=== PATIENT | male | born 1950 | race Caucasian/White ===

== ENCOUNTER → 2017-11-11 | Outpatient (CLI) | payer BC ==
--- NOTE | 2017-11-15 08:09 | US ---
EXAM DESCRIPTION: Carotid Duplex CLINICAL HISTORY: 66 years, Male, UNSPECIFIED DISORDER OF CIRCULATORY SYSTEM COMPARISON: [None.] FINDINGS: Indirect estimation of percent stenosis is inferred from velocity parameters and cross referenced to published or self-generated correlations among velocity parameters. Peak systolic velocity right common carotid artery 81 centimeters/second. Peak systolic velocity right internal carotid artery 64 centimeters/second. Right ICA to CCA ratio 0.8. Antegrade flow in the right vertebral artery. Grayscale images show a small amount of plaque in the right carotid bifurcation. Peak systolic velocity left common carotid artery 94 centimeters/second. Peak systolic velocity left internal carotid artery 66 centimeters/second. Left ICA to CCA ratio 0.7. [Antegrade] flow in the left vertebral artery. Grayscale images show a small amount of plaque in the left carotid bifurcation. IMPRESSION: Mild (less than 50%) bilateral carotid artery stenosis. Electronically signed by: Stanford Jane MD 11/15/2017 8:08 AM SENIOR TECHNICAL SPECIALIST
== END ==
LOC: US 09:37
DX: I99.9 Unspecified disorder of circulatory system (principal); I65.23 Occlusion and stenosis of bilateral carotid arteries; E11.65 Type 2 diabetes mellitus with hyperglycemia

== ENCOUNTER → 2019-05-09 | Outpatient (CLI) | payer MEDICARE, OTHER ==
--- NOTE | 2019-05-09 17:22 | RAD ---
EXAM DESCRIPTION: Foot,Right 3 Views CLINICAL HISTORY: 68 years, Male, DIABETIC FOOT ULCER, R/O OSTEOMYELITIS OF 5TH TOE COMPARISON: None TECHNIQUE: AP, lateral, and oblique views of the right foot FINDINGS/IMPRESSION: Images of the right foot demonstrate fifth toe soft tissue irregularity/ulceration. There is focal bony demineralization and osteolysis at the proximal phalanx head which is concerning for osteomyelitis (in the setting of diabetic foot ulcer). Additional nondisplaced fracture through this area is not excluded. Irregular bony remodeling involving the first MTP joint may represent sequela from prior septic arthritis. The bone mineralization is preserved. Soft tissue swelling about the right fifth toe is noted. Electronically signed by: Ranjit Dos Santos DO 05/09/2019 5:20 PM CDT
== END ==
LOC: YCFC.O 16:33
PROVIDERS: ATTEND Family Medicine
DX: E13.621 Other specified diabetes mellitus with foot ulcer (principal); M79.89 Other specified soft tissue disorders; M89.8X7 Other specified disorders of bone, ankle and foot

== ENCOUNTER → 2020-02-29 | Outpatient (CLI) | payer MEDICARE, OTHER | LOC: YCFC.O 12:01 | PROVIDERS: ATTEND Family Medicine | DX: R53.83 Other fatigue (principal); E11.65 Type 2 diabetes mellitus with hyperglycemia; Z12.5 Encounter for screening for malignant neoplasm of prostate | CPT/HCPCS: 80053; 83036; 84443; 85025; G0103 ==

== ENCOUNTER → 2020-08-13 | Outpatient (CLI) | payer MEDICARE, OTHER | LOC: YCFC.O 12:01 | PROVIDERS: ATTEND Family Medicine | DX: E11.65 Type 2 diabetes mellitus with hyperglycemia (principal); E78.5 Hyperlipidemia, unspecified; N39.0 Urinary tract infection, site not specified ==

== ENCOUNTER → 2020-08-14 | Outpatient (CLI) | payer MEDICARE, OTHER ==
--- NOTE | 2020-08-15 10:48 | RAD ---
EXAM DESCRIPTION: Shoulder,Right 2 or More Views CLINICAL HISTORY: PAIN OF RIGHT SHOULDER COMPARISON: None. TECHNIQUE: 2 views right FINDINGS: Mild degenerative changes are observed in the acromio clavicular joint. The glenohumeral joint is normal in appearance. No fracture or dislocation is seen. 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 The shoulder is otherwise unremarkable. Electronically signed by: Rell Escamilla MD 08/15/2020 10:46 AM [facility]
--- NOTE | 2020-08-15 10:50 | RAD ---
EXAM DESCRIPTION: Lumbar Spine 3 Views CLINICAL HISTORY: LOW BACK PAIN COMPARISON: None Available. TECHNIQUE: AP/lateral/coned-down lateral FINDINGS: The lumbar vertebral bodies are in good AP alignment. Nunez rods are seen to extend from T10 through L5. The left-sided sayra is fractured inferiorly. Endplate degenerative changes are observed vertically at the L4-5 and L5-S1 levels. No collapse of the superior endplate of L1 is observed. IMPRESSION: 1. Nunez rods are seen to extend from T10 through L5 with fracturing of the inferior left-sided sayra. 2. Extensive degenerative changes are observed at the L4-5 and L5-S1 levels. Electronically signed by: Rell Escamilla MD 08/15/2020 10:48 AM [facility]
== END ==
LOC: RAD 10:09
PROVIDERS: ATTEND Family Medicine
DX: M47.896 Other spondylosis, lumbar region (principal); M47.897 Other spondylosis, lumbosacral region; T84.216A Breakdown (mechanical) of internal fixation device of vertebrae, initial encounter; Z98.890 Other specified postprocedural states; M19.011 Primary osteoarthritis, right shoulder

== ENCOUNTER → 2020-09-11 | Outpatient (CLI) | payer MEDICARE, OTHER | LOC: LAB.O 09:42 | PROVIDERS: ATTEND Family Medicine | DX: D64.9 Anemia, unspecified (principal); E53.8 Deficiency of other specified B group vitamins; R33.9 Retention of urine, unspecified; R53.83 Other fatigue; R01.1 Cardiac murmur, unspecified ==

== ENCOUNTER → 2020-11-06 | Outpatient (CLI) | payer MEDICARE, OTHER ==
--- NOTE | 2020-11-06 17:25 | RAD ---
EXAM:Chest,2 Views CLINICAL INDICATION: Pneumonia COMPARISON: There is no previous study for comparison. FINDINGS:Two views of the chest were obtained. The heart size is normal. The pulmonary vascularity is unremarkable. Extensive bilateral infiltrates are noted throughout both lungs. There is no pneumothorax. IMPRESSION: Extensive bilateral pulmonary infiltrates consistent with pneumonia. Electronically signed by: Vadim Espinoza MD 11/06/2020 5:23 PM AUDIO VISUAL DIRECTOR
== END ==
LOC: YCFC.O 15:38
PROVIDERS: ATTEND Family Medicine
DX: D51.9 Vitamin B12 deficiency anemia, unspecified (principal); J12.82 Pneumonia due to coronavirus disease 2019; U07.1 COVID-19; R79.89 Other specified abnormal findings of blood chemistry; D50.9 Iron deficiency anemia, unspecified

== ENCOUNTER → 2020-12-03 | Outpatient (CLI) | payer MEDICARE, OTHER ==
--- NOTE | 2020-12-04 14:33 | RAD ---
EXAM DESCRIPTION: Chest,2 Views CLINICAL HISTORY: 69 years Male, PNEUMONIA CAUSED BY SARS-COV COMPARISON: 11/06/2020 TECHNIQUE: Single view radiograph of the chest. IMPRESSION: Normal-sized cardiac silhouette. Partially calcified aorta. Improved but residual bilateral predominantly peripheral interstitial opacification likely representing pneumonia given the patient's history. No pleural effusion or pneumothorax. Thoracic spondylosis. Electronically signed by: Harrison Lewis MD 12/04/2020 2:32 PM STOCK PLAN ADMINISTRATOR
== END ==
LOC: YCFC.O 13:32
PROVIDERS: ATTEND Family Medicine
DX: U07.1 COVID-19 (principal); J12.82 Pneumonia due to coronavirus disease 2019; M47.894 Other spondylosis, thoracic region; I70.0 Atherosclerosis of aorta